=== PATIENT | male | born 1985 | race Caucasian/White ===

== ENCOUNTER 2022-06-12 20:54 | Emergency (ER) | payer OTHER, SELFPAY ==
[2022-06-12] VITALS (8 sets, daily range): BP systolic 121–138; BP diastolic 71–82; PULSE 81–105; RESP 16; TEMP 36.7; O2SAT 99
--- NOTE | 2022-06-12 22:19 | ED.SKABFB ---
HPI - Skin/Abscess/Foreign Bdy General Chief complaint: Skin/Abscess/Foreign Body Stated complaint: Laceration to top of lt. eyebrow Time Seen by Provider: 06/12/22 22:19 Source: patient and family Mode of arrival: Ambulatory Limitations: no limitations History of Present Illness HPI narrative: This is a 37-year-old male with reported slip and fall on some seaweed covered rocks for patient states he slipped and hit his forehead. Patient states there is a cut at his left eyebrow. He denies loss of consciousness. He states mild headache. Denies any pain in his eye or vision changes. Denies any nausea or vomiting. Denies any neck or back pain. No chest pain, shortness of breath, he denies nausea or vomiting. No GI or urinary symptoms. No numbness tingling or weakness. He states he has some small abrasions and cuts on his legs and hands. Patient denies any anticoagulants. No daily medications. Denies prior surgeries. No tobacco he does drink alcohol several drinks daily typically states he had 4 beers this morning. Occasionally uses marijuana denies other illicit. Patient states he lives in [place] and is visiting the area. They were on [place] when this occurred about 1600 today and came via [place] to be evaluated. They were seen on the [place] had Steri-Strips applied. Patient does not believe his tetanus is up-to-date. Review of Systems Review of Systems ROS Unobtainable: All systems reviewed & are unremarkable except as noted in HPI and below Patient History Social History Smoking Status: Never smoker Smoking Status: Never smoker alcohol intake frequency: 3 or more drinks per day Alcohol type: beer Substance Use Type: marijuana Exam Narrative Exam Narrative: GEN: Patient appears in mild distress. HEAD: Patient has a laceration of the medial portion of the left brow that is curvilinear into the brow itself, there is some gap into the subcutaneous tissue, no bone is exposed, so proximally 3 cm in length with varying depth, no raccoon/Cage sign. NECK: Nontender, painless range of motion, trachea midline Positive for Nexus criteria, there is no midline line tenderness, distracting injury, altered mental status, neuro deficit, positive for recent EtOH. EYES: PERRLA, EOMI ENT: External inspection normal other than noted above, trachea is midline, TM's are normal no hemotypanum, Nares are clear, no septal hematoma, no dental or oral injury, airway is normal and with normal occlusion, No bony tenderness RESP: Chest is nontender and has symmetric movement, no ecchymosis, breath sounds are normal no crackles, wheezes or rales CVS: Heart sounds are normal, no murmur noted, No JVD. ABG/GI: Nontender, soft, normal bowel sounds, no distention, no organomegaly, pelvic rock is negative NEURO: Oriented AOx3, neuro is grossly intact, sensation and motor is normal all 4 extremities moving, cranial nerves II through XII are intact, GCS is 15 PSYCH: Normal mood and affect SKIN: Patient has some superficial abrasions over the palms of his hands, right anterior aguirre, warm and dry, no crepitus and without decubitus BACK: No CVA tenderness, no vertebral tenderness, no step-off's, no crepitus EXT: Atraumatic, hips are nontender, no pedal edema, normal color and temperature, normal range of motion of extremities with normal tendon exam, 2+ pulses in all four extremities Initial Vital Signs Initial Vital Signs: Vital Signs Temperature 98.1 F 06/12/22 21:05 Pulse Rate 98 H 06/12/22 21:05 Respiratory Rate 16 06/12/22 21:05 Blood Pressure 138/82 06/12/22 21:05 Pulse Oximetry 99 06/12/22 21:05 Oxygen Delivery Method 06/12/22 21:05 Procedures Laceration Repair Laceration 1: Time of procedure: 23:30 Site: face (left eyebrow) Size (cm): 3.5 Description: flap and irregular (curvilinear) Depth: simple, single layer Local Anesthetic: lidocaine 1% and with bicarb Amount of anesthesia used (mL): 4 Pre-repair: wound explored, irrigated extensively and deep structures intact Skin layer closed with: vicryl Skin layer suture size: 5-0 Number of sutures: 6 Technique: simple, interrupted Scores GCS Yonny coma scale eye opening: Spontaneous Yonny coma scale verbal response: Orientated [place] coma scale motor response: Obey commands [place] coma scale total score: 15 Nexus Score for C-Spine Focal Neurologic deficit present: No Midline spinal tenderness present: No Altered level of conciousness present: No Intoxication present: Yes Distracting Injury Present: No Nexus Criteria for C-spine: 1 Course Orders Ordered: ED Orders 06/12/22 23:10 CT head/brain wo con Stat 06/12/22 23:12 CT cervical spine wo con Stat Discontinued Medications Diphtheria/Tetanus/Acell Pertussis (Tet,Diph,Pertuss(Acell),Vac/Pf 0.5 Ml Syringe) 0.5 ml IM .ONCE ONE Stop: 06/12/22 21:15 Last Admin: 06/12/22 23:10 Dose: 0.5 ml Documented By: SHAHZAD Vital Signs Vital signs: Vital Signs - 8 hr 06/12/22 21:05 06/12/22 21:08 06/12/22 21:08 Temperature 98.1 F Pulse Rate 98 H 90 Respiratory Rate 16 Blood Pressure 138/82 138/82 Pulse Oximetry 99 99 Oxygen Delivery Method Room Air 06/12/22 21:30 06/12/22 21:30 06/12/22 22:00 Temperature Pulse Rate 95 H Respiratory Rate Blood Pressure 129/76 122/77 Pulse Oximetry 99 Oxygen Delivery Method 06/12/22 22:00 06/12/22 22:30 06/12/22 22:30 Temperature Pulse Rate 91 H 81 Respiratory Rate Blood Pressure 121/73 Pulse Oximetry 99 99 Oxygen Delivery Method 06/12/22 23:00 06/12/22 23:00 06/12/22 23:25 Temperature Pulse Rate 83 105 H Respiratory Rate Blood Pressure 124/71 Pulse Oximetry 99 99 Oxygen Delivery Method 06/12/22 23:30 06/12/22 23:30 06/13/22 00:00 Temperature Pulse Rate 87 Respiratory Rate Blood Pressure 138/73 121/88 Pulse Oximetry 99 Oxygen Delivery Method 06/13/22 00:00 Temperature Pulse Rate 100 H Respiratory Rate Blood Pressure Pulse Oximetry 99 Oxygen Delivery Method MDM - Skin/Abscess/Foreign Bdy Imaging Data CT scan - head: Radiologist's Impression: [address] [address] [address] Scan Report Signed Patient: Thanh Simmons MR#: [id number] : 1985 Acct:[id number] Age/Sex: 37 / M Date of Service: 06/12/22 Loc: ED Accession Number: [id number] ?? Procedure: CT head/brain wo con Ordering Provider: Danna Sun D.O. PROCEDURE:? CT HEAD/BRAIN WO CON ? INDICATIONS:? head injury, laceration, etoh ? TECHNIQUE:? Noncontrast 5 mm thick angled axial sections acquired from the foramen magnum to the vertex, with coronal and sagittal reformats.? For radiation dose reduction, the following was used:? automated exposure control, adjustment of mA and/or kV according to patient size.? ? COMPARISON:? None. ? FINDINGS:? Image quality:? Excellent.? ? CSF spaces:? Basal cisterns are patent.? No extra-axial fluid collections.? Ventricles are normal in size and shape.? ? Brain:? No intracranial hemorrhage, mass, or mass effect.? Jung-white matter interface appears preserved.? ? Skull and face:? Calvarium and visualized facial bones are intact, without suspicious lesions.? There is mild left supraorbital soft tissue swelling.? The globes are intact.? ? Sinuses:? Visualized sinuses and mastoids are clear.? ? IMPRESSION:? ? 1. No acute intracranial abnormality. ? ? Dictated by: Yvan Lizarraga M.D. on 06/12/2022 at 23:49 ? ? Approved by: Yvan Lizarraga M.D. on 06/12/2022 at 23:51?? CT - cervical spine: Radiologist's Impression: Thanh Simmons??37??M??1985 ? Allergy/Adv: Not Recorded Close Cervical Spine CT (Signed) Yvan Lizarraga - 06/12/[address] (Signed) Yvan Lizarraga - 06/12/22 Launch?[place] [address] CT Scan Report Signed Patient: Thanh Simmons MR#: [id number] : 1985 Acct:[id number] Age/Sex: 37 / M Date of Service: 06/12/22 Loc: ED Accession Number: [id number] ?? Procedure: CT cervical spine wo con Ordering Provider: Danna Sun D.O. PROCEDURE:? CT CERVICAL SPINE WO CON ? INDICATIONS:? fall, head injury etoh ? TECHNIQUE:? Noncontrast 3 mm thick sections acquired from the skull base to the T4 level.? Sagittal and coronal reformats were then constructed.? For radiation dose reduction, the following was used:? automated exposure control, adjustment of mA and/or kV according to patient size.? ? COMPARISON:? None. ? FINDINGS:? Image quality:? Excellent.? ? Bones:? No fractures or subluxation.? There is a mild rightward curvature of the cervical thoracic spine.? There is mild degenerative disc disease and facet joint arthropathy.? Visualized superior ribs are intact.? ? Soft tissues:? Prevertebral soft tissues are normal in thickness.? No paravertebral hematomas.? No apical pneumothoraces.? ? ? IMPRESSION:? ? 1. No acute fracture or subluxation. ? ? ? Dictated by: Yvan Lizarraga M.D. on 06/12/2022 at 23:51 ? ? Approved by: Yvan Lizarraga M.D. on 06/12/2022 at 23:53?? MDM Narrative Medical decision making narrative: This is a 37-year-old with known medical issues who had a ground level fall after slipping on a seaweed covered rock striking his brow. Patient states he did have alcohol earlier today. His laceration of the left brow, head CT C-spine were obtained to rule out injury patient is nontender on his neck but did have alcohol earlier. Laceration was repaired with absorbable suture. Return precautions discussed. Tetanus was updated. Discharge Plan Departure Patient Disposition: Home Clinical Impression: Head injury, Laceration of eyebrow, left Instructions: DI for Laceration Repair -- Simple Activity Restrictions/Additional Instructions: Your sutures are absorbable if they are still present at 7-10 days you can return or go to an urgent care to have them removed if they have not absorbed. Wound Care: Keep wound(s) clean and dry. Wash daily with soap and water only. Do not use over the counter products (alcohol or peroxide)on the wounds unless instructed by a physician. If wound condition worsens (increased/expanding redness, developing fluid blisters, or worsening pain), either contact your doctor for an urgent re-assessment , or return to the Emergency Department. Return to the Emergency Department for any new or worsening symptoms. Return if fever greater than 100.4 Fahrenheit, increased swelling, increasing pain or worsening symptoms such as increased discharge or spreading redness. Severe headaches, altered mental status, persistent vomiting, new neck or back pain or other new or concerning symptoms. Visit Report Forms: Patient Portal/API
[2022-06-12] MEDS: TET,DIPH,PERTUSS(ACELL),VAC/PF 0.5 ML SYRINGE IM (23:10)
--- NOTE | 2022-06-12 23:10 | DI.CT.S_ITS ---
PROCEDURE: CT HEAD/BRAIN WO CON INDICATIONS: head injury, laceration, etoh TECHNIQUE: Noncontrast 5 mm thick angled axial sections acquired from the foramen magnum to the vertex, with coronal and sagittal reformats. For radiation dose reduction, the following was used: automated exposure control, adjustment of mA and/or kV according to patient size. COMPARISON: None. FINDINGS: Image quality: Excellent. CSF spaces: Basal cisterns are patent. No extra-axial fluid collections. Ventricles are normal in size and shape. Brain: No intracranial hemorrhage, mass, or mass effect. Jung-white matter interface appears preserved. Skull and face: Calvarium and visualized facial bones are intact, without suspicious lesions. There is mild left supraorbital soft tissue swelling. The globes are intact. Sinuses: Visualized sinuses and mastoids are clear. IMPRESSION: 1. No acute intracranial abnormality. Dictated by: Yvan Lizarraga M.D. on 06/12/2022 at 23:49 Approved by: Yvan Lizarraga M.D. on 06/12/2022 at 23:51
[2022-06-12] MEDS: LIDO 1%/SOD BICARB 8.4% (10ML) 10 ML SYRINGE (23:12)
--- NOTE | 2022-06-12 23:12 | DI.CT.S_ITS ---
PROCEDURE: CT CERVICAL SPINE WO CON INDICATIONS: fall, head injury etoh TECHNIQUE: Noncontrast 3 mm thick sections acquired from the skull base to the T4 level. Sagittal and coronal reformats were then constructed. For radiation dose reduction, the following was used: automated exposure control, adjustment of mA and/or kV according to patient size. COMPARISON: None. FINDINGS: Image quality: Excellent. Bones: No fractures or subluxation. There is a mild rightward curvature of the cervical thoracic spine. There is mild degenerative disc disease and facet joint arthropathy. Visualized superior ribs are intact. Soft tissues: Prevertebral soft tissues are normal in thickness. No paravertebral hematomas. No apical pneumothoraces. IMPRESSION: 1. No acute fracture or subluxation. Dictated by: Yvan Lizarraga M.D. on 06/12/2022 at 23:51 Approved by: Yvan Lizarraga M.D. on 06/12/2022 at 23:53
[2022-06-13] VITALS: BP 121/88; PULSE 100; O2SAT 99
== END 2022-06-13 00:13 | disposition home or self-care (01) ==
PROVIDERS: Emergency Provider Emergency Medicine
DX: S01.112A Laceration without foreign body of left eyelid and periocular area, initial encounter (principal); W01.198A Fall on same level from slipping, tripping and stumbling with subsequent striking against other object, initial encounter; Z23 Encounter for immunization
CPT/HCPCS: 12011; 12013; 70450; 72125; 90471; 99284; 90715